=== PATIENT | female | born 1950 | race Caucasian/White ===

== ENCOUNTER 2019-11-09 10:55 | Emergency (ER) | payer SELFPAY ==
[~2019-11-09] VITALS: Ht 165.1 cm; Wt 62.0 kg
--- NOTE | 2019-11-09 10:57 | NUR ---
patient arrives from [facility] with tachycardia, nausea, abdominal pain and weakness for three days.
[2019-11-09] MEDS ORDERED: GABA600T7 PO (11:18)
[2019-11-09] MEDS ORDERED: OXYC5CAP2 PO (11:18)
--- NOTE | 2019-11-09 11:18 | NUR ---
PATIENT HAD RECENT SURGERY SHE JUST ADVISED ME THAT WAS ALL SHE CAN RECALL IS "NECK SURGERY FOR PAIN FOR PINCHED NERVE" AND THERE IS A SURGICAL SCAR FRONT RIGHT OF NECK THAT IS CDI, APPROXIMATED AND NO DRAINAGE. NOT RED
[2019-11-09] MEDS ORDERED: ONDANSETRON 2MG/ML, 2ML ONE (11:24)
[2019-11-09] MEDS ORDERED: FAMOTIDINE 20 MG/2 ML ONE (11:25)
[2019-11-09] MEDS ORDERED: PLEASE ENTER ALLERGIES MC SCH (11:30)
[2019-11-09] MEDS ORDERED: SODIUM CHLORIDE FLUSH 10ML SYR IVF ONE (11:30)
[2019-11-09] MEDS ORDERED: FAMOTIDINE 20 MG/2 ML IV ONE (11:30)
[2019-11-09] MEDS ORDERED: SODIUM CHLORIDE 0.9% 1,000ML IVBOLUS ONE (11:30)
[2019-11-09] MEDS ORDERED: ONDANSETRON 2MG/ML, 2ML IVPush ONE (11:30)
[2019-11-09 11:47] LABS: BASOPHILS # (AUTO) 0.01 x10^3/uL (0-0.1); BASOPHILS % (AUTO) 0 % (0-1); EOSINOPHILS # (AUTO) 0.03 x10^3/uL (0-0.4); EOSINOPHILS % (AUTO) 0 % (1-7); LYMPHOCYTES # (AUTO) 0.96 x10^3/uL (1-3.4); LYMPHOCYTES % (AUTO) 9 % (22-44); MD NO; MEAN CORPUSCULAR HEMOGLOBIN 34.2 pg (27.0-34.8); MEAN CORPUSCULAR HGB CONC 33.5 g/dL (32.4-35.8); MEAN CORPUSCULAR VOLUME 102.3 fL (80-100); MEAN PLATELET VOLUME 9.5 fL (7.4-10.4); MONOCYTES # (AUTO) 0.37 x10^3/uL (0.2-0.8); MONOCYTES % (AUTO) 4 % (2-9); NEUTROPHILS # (AUTO) 9.18 x10^3/uL (1.8-6.8); NEUTROPHILS % (AUTO) 87 % (42-75); PLATELET COUNT 282 x10^3/uL (130-400); RED CELL DISTRIBUTION WIDTH 12.7 % (9.6-15.2)
[2019-11-09 11:58] LABS: ALANINE AMINOTRANSFERASE 20 U/L (12-78); ALBUMIN 3.8 g/dL (3.4-5.0); ANION GAP 7 mmol/L (5-15); CALCIUM 9.6 mg/dL (8.5-10.1); CHLORIDE 105 mmol/L (98-107); CREATININE 0.77 mg/dL (0.55-1.02)
[2019-11-09 12:02] LABS: ALKALINE PHOSPHATASE 135 U/L (45-117); BILIRUBIN,TOTAL 0.9 mg/dL (0.2-1.0); TROPONIN I < 0.015 ng/mL (0.000-0.045)
--- NOTE | 2019-11-09 12:25 | NUR ---
sent urine on patient clean catch - patient able to get up to bedside commode with help. weak. ambulates good with help. 200 urine out
[2019-11-09 12:28] LABS: MICROSCOPIC NOT IND
--- NOTE | 2019-11-09 12:30 | NUR ---
patient can't poop at this time for stool sample
--- NOTE | 2019-11-09 13:14 | NUR ---
awaiting ct scan, got her water.
--- NOTE | 2019-11-09 13:32 | NUR ---
patient left for ct scan. helped her to bathroom. she is weak on feet and gets tachy 130 when she gets up. she needs stand by assistance.
--- NOTE | 2019-11-09 13:51 | NUR ---
Pt's grandson: Michael [phone]
--- NOTE | 2019-11-09 13:56 | NUR ---
Break RN note: Pt back from CT, c/o continued nausea. Pt denies other needs. Pt's grandson Michael called for update on pt. Per pt it is ok to give Michael information over the phone. Michael requesting call when dispo is determined for pt.
[2019-11-09] MEDS ORDERED: OMNIPAQUE 350 MG/ML, 100ML BOTTLE ONE (13:59)
--- NOTE | 2019-11-09 14:43 | NUR ---
patient tossing around in bed, repeating "i'm so sick, i'm going to throw up, my stomach hurts". She is restless. anxious.
[2019-11-09 15:26] VITALS: BP 178/78
--- NOTE | 2019-11-09 15:42 | NUR ---
got patient shorts as she had accident in pants. patient is upset about not feeling good, upset about leaving and upset about hospital. patient discharge reviewed. aidet. apologized to her.
== END 2019-11-09 15:46 | disposition home or self-care (01) ==
LOC: ED 14:19
DX: R11.2 Nausea with vomiting, unspecified (principal); E83.42 Hypomagnesemia; E87.6 Hypokalemia; R00.0 Tachycardia, unspecified
CPT/HCPCS: 36415; 74022; 74177; 80053; 81003; 83605; 83690; 83735; 84484; 85025; 93005; 96361; 96374; 96375; 99285; J2405; J3490; J7030; Q9967

== ENCOUNTER 2019-11-27 17:07 | Emergency (ER) | payer OTHER ==
[~2019-11-27] VITALS: Ht 172.7 cm; Wt 72.0 kg
[~2019-11-27 17:07] MED LIST: GABA600T7 PO; OXYC5CAP2 PO
[2019-11-27] MEDS ORDERED: ONDANSETRON 2MG/ML, 2ML ONE (17:19)
[2019-11-27] MEDS ORDERED: LORazepam 2 MG/ML, 1ML ONE ×2 (17:22→19:53)
--- NOTE | 2019-11-27 17:25 | NUR ---
this is a 69 year old female that came in by [facility]. pt presents with complaint of pain in abdomen. pt is unwilling to describe pain despite multiple attempts. pt appears to be very anxious. pt placed on hospital gurjetmore, cardiac, nibp and o2 monitoing in [address]. iv access via [facility] was established. this rn was unsuccessful at coaching pt to slow respirations. pt repeatedly states I am sick. pt unable to elaborrate on what sick means. pt was able to ambulate to restroom with a steady gait. pt educated that medical providers need information to be able to help and it is of benifit if she would be able to describe what she is experiencing to the dr when present.
[2019-11-27] MEDS ORDERED: ONDANSETRON 2MG/ML, 2ML IVPush ONE (17:30)
[2019-11-27] MEDS ORDERED: LORazepam 2 MG/ML, 1ML IVPush ONE (17:30)
[2019-11-27] MEDS ORDERED: SODIUM CHLORIDE 0.9% 1,000ML IVBOLUS ONE (17:30)
[2019-11-27] MEDS ORDERED: SODIUM CHLORIDE FLUSH 10ML SYR IVF ONE (17:30)
[2019-11-27 17:51] LABS: BASOPHILS % (AUTO) 0 % (0-1); EOSINOPHILS % (AUTO) 0 % (1-7); LYMPHOCYTES # (AUTO) 0.86 x10^3/uL (1-3.4); LYMPHOCYTES % (AUTO) 7 % (22-44); MD NO; MEAN CORPUSCULAR HGB CONC 32.4 g/dL (32.4-35.8); MEAN PLATELET VOLUME 8.8 fL (7.4-10.4); MONOCYTES # (AUTO) 0.13 x10^3/uL (0.2-0.8); MONOCYTES % (AUTO) 1 % (2-9); NEUTROPHILS # (AUTO) 11.43 x10^3/uL (1.8-6.8); NEUTROPHILS % (AUTO) 92 % (42-75); PLATELET COUNT 280 x10^3/uL (130-400)
[2019-11-27 17:55] LABS: MICROSCOPIC AUTO
[2019-11-27 18:01] LABS: ALANINE AMINOTRANSFERASE 20 U/L (12-78); ALBUMIN 4.2 g/dL (3.4-5.0); ANION GAP 10 mmol/L (5-15); CALCIUM 9.4 mg/dL (8.5-10.1); CHLORIDE 103 mmol/L (98-107); CREATININE 1.01 mg/dL (0.55-1.02)
[2019-11-27 18:03] LABS: ALKALINE PHOSPHATASE 122 U/L (45-117); BILIRUBIN,TOTAL 0.7 mg/dL (0.2-1.0); TOTAL PROTEIN 8.4 g/dL (6.4-8.2)
--- NOTE | 2019-11-27 19:10 | NUR ---
pt resting comfortably in bed at this time. pt is arousable to voice and at this time denies coomplaint.
[2019-11-27] MEDS ORDERED: LORazepam 2 MG/ML, 1ML IVPush STA (19:52)
[2019-11-27 20:54] VITALS: BP 162/97
== END 2019-11-27 21:04 | disposition home or self-care (01) ==
LOC: ED 19:53
DX: R10.84 Generalized abdominal pain (principal); F17.210 Nicotine dependence, cigarettes, uncomplicated; R11.2 Nausea with vomiting, unspecified
CPT/HCPCS: 36415; 80053; 81001; 83690; 85025; 96361; 96374; 96375; 96376; 99284; 99406; J2060; J2405; J7030